=== PATIENT | male | born 1980 | race Caucasian/White ===

== ENCOUNTER 2024-05-30 07:14 | Day surgery (SDC) | payer OTHER, SELFPAY ==
[2024-05-30 07:28] VITALS: BMI 22.4
--- NOTE | 2024-05-30 07:33 | W.PM.H&PU ---
History & Physical Update History & Physical Update H&P Reviewed and patient assessed: No changes noted
--- NOTE | 2024-05-30 07:33 | PM.ORPRC ---
Procedure Note Date of procedure: 05/30/24 Procedure: PREOPERATIVE DIAGNOSIS: 1. Right middle finger volar soft tissue mass POSTOPERATIVE DIAGNOSIS: 1. Right middle finger volar soft tissue mass PROCEDURE: 1. Right middle finger volar soft tissue mass excision SURGEON: Dionte Hunt MD. RELAY TELEGRAPHER: Cari Merritt - An golf course assistant was critical for this case to aid in patient positioning, tissue retraction, limb manipulation/positioning, and closure. ANESTHESIA: Local anesthetic with monitored anesthesia care TOURNIQUET: 17 minutes at 250 mmHg ESTIMATED BLOOD LOSS: 1 mL COMPLICATIONS: None SPECIMENS: Soft tissue masses and surrounding capsule which measured approximately 1.0 x 0.5 x 0.5 cm in size. INDICATIONS: The patient is a pleasant 43-year-old male who developed a soft tissue mass on the volar aspect of his right middle finger at the level of the proximal phalanx. Mass was causing discomfort with activities and patient elected to have it surgically removed. Prior to surgery risks and benefits of procedure discussed with patient all questions were answered and informed consent was obtained. FINDINGS: Subcutaneous tissue mass with associated capsular tissue which measured approximately 1.0 x 0.5 x 0.5 cm in size, which was located subcutaneously on the volar aspect of the right middle finger. DESCRIPTION OF PROCEDURE: Patient was seen preoperatively and operative site was marked. He was then brought to the operating room and placed supine on the operating table. Monitored anesthesia care was provided by anesthesia staff. IV Ancef was administered operatively for prophylaxis. The right upper extremity was prepped and draped in usual sterile fashion. A surgical time-out was performed confirming patient identity, surgical site, and surgical procedure. A digital nerve block was performed using 1% plain lidocaine and 0.25% plain bupivacaine. A sterile tourniquet was placed on the patient's right forearm. The hand was then elevated and tourniquet was inflated to 250 mmHg. A Janie type incision was made on the volar aspect middle finger proximal phalanx between the PIP flexion crease in MCP flexion crease. Full-thickness skin flaps were developed. Electrocautery was used to achieve hemostasis. Soft tissue mass was identified. The capsular tissue was easily removed. Firm subcutaneous mass was then dissected circumferentially from surrounding soft tissues. Specimens was removed in several pieces and was sent in formalin to pathology. After removal of the soft tissue mass, subcutaneous tissues were palpable and no remnant mass was noted. Tourniquet was released. Total tourniquet time was 17 minutes. Wound was irrigated with copious amounts of normal saline and hemostasis was achieved with bipolar electrocautery. Skin was closed with 4-0 nylon horizontal mattress sutures and sterile dressings were applied. Patient was then awoke from anesthesia and transferred to the PACU stable condition. PLAN: 1. Patient will be discharged to home day of surgery. 2. They were given instructions for wound care and finger range of motion exercises. 3. Tylenol and/ ibuprofen as needed for pain control. Tramadol for breakthrough pain. 4. Ice and elevation as needed for pain and swelling. 5. No lifting, pushing, or pulling with the operative hand. 6. Return to the clinic for follow-up evaluation in 10-14 days for wound check and suture removal.
--- OUTSIDE RECORDS SUMMARY | 2024-05-30 07:37 | XMS_ITS | Clinical Summary ---
Author Organization [facility] Address [address] [place] [phone] Phone [email or web address] [email or web address] Care Team Providers Care Purchasing Department Clerk Name Role Phone Unavailable Primary Care Provider Unavailabl e Allergies No known active allergies Active Problems Problem Noted Date Diagnosed Date Cervicalgia 08/14/2022 Segmental and somatic dysfunction of pelvic em on 08/14/2022 Segmental and somatic dysfunction of sacral em on 08/14/2022 Neck muscle spasm 07/10/2022 Segmental and somatic dysfunction of cervical re gion 07/10/2022 Segmental and somatic dysfunction of thoracic re gion 07/10/2022 Impingement syndrome of right shoulder 3 Encounters Date Type Department Care Team Description 05/06/2024 Claims Summary [facility] [address] [place] [address] Provider, Claims Summary MD Emigdio 04/09/2024 Claims Summary [facility] [address] [place] [id number] Provider, Claims Summary MD Emigdio 03/06/2024 Claims Summary [facility] [address] [place] [address] Provider, Claims Summary MD Emigdio from Last 3 Months Social History Tobacco Use Types Packs/Day Years Used Date Smoking Tobacco: Former E-Cigarettes Tobacco Cessation:Counseling Given: Not Answered Stress Answer Date Recorded Stress in your Life Not on file 04/02/2024 Dealing with Stress 3 04/02/2024 Sex and Gender Information Value Date Recorded Sex Assigned at Male 07/10/2022 1:55 PM LAMINATION INSPECTOR Legal Sex Male 11:43 AM LAMINATION INSPECTOR Gender Identity Male 07/10/2022 1:55 PM LAMINATION INSPECTOR Sexual Orientation Not on file Last Filed Vital Signs Vital Sign Reading Time Taken Comments Blood Pressure - - Pulse - - Temperature - - Respiratory Rate - - Oxygen Saturation - - Inhaled Oxygen Concentration - - Weight 79.4 kg (175 lb) 08/14/2022 7:02 AM CDT Height 188 cm (6' 2) 08/14/2022 7:02 AM CDT Body Mass Index 22.47 08/14/2022 7:02 AM CDT Plan of Treatment Health Maintenance Due Date Last Done Comments Dental Cleaning/Exam 1980 HIV Screening 1980 Hepatitis C Screening 1980 Annual Preventive Exam 1998 Hep B Infection Screening - Triple Screen 1998 Hepatitis B Immunization (1 of 3 - 19+ 3-dose series) 07/28/1999 Tetanus Diphtheria and Pertu ssis Immunization (1 - Tdap) 07/28/1999 Covid-19 Immunization (1 - 2 25 season) 2024 Influenza Immunization (#1) 2024 HIB Immunization Aged Out No longer e ligible based on patient's age to complete this topic HPV Immunization Aged Out No longer e ligible based on patient's age to complete this topic Hepatitis A Immunization Aged Out No longer eligible based on patient's age to complete this topic Pneumococcal: Ped (0 to 5 Yr s) and At-Risk Member (6 to 64 Yrs) Aged Out No longer e ligible based on patient's age to complete this topic Polio Immunization Aged Out No longer eligible based on patient's age to complete this topic Varicella Immunization Aged Out No lo nger eligible based on patient's age to complete this topic Insurance [facility] NO COPAY NB
--- OUTSIDE RECORDS SUMMARY | 2024-05-30 07:37 | XMS_ITS | Encounter Summary ---
Author Organization [facility] Address [address] [place] [phone] Phone [email or web address] [email or web address] Care Team Providers Care Youth Development Professional Name Role Phone Unavailable Primary Care Provider Unavailabl e Encounter Details Date Type Department Care Team (Late st Contact Info) Description 02/06/2024 Claims Summary [facility] [address] [place] [address] Provider, Claims Summary External, [address] [place] [address] Social History Tobacco Use Types Packs/Day Years Used Date Smoking Tobacco: Former E-Cigarettes Sex and Gender Information Value Date Recorded Sex Assigned at Male 07/10/2022 1:55 PM CATASTROPHE CLAIMS SUPERVISOR Legal Sex Male 11:43 AM CATASTROPHE CLAIMS SUPERVISOR Gender Identity Male 07/10/2022 1:55 PM CATASTROPHE CLAIMS SUPERVISOR Sexual Orientation Not on file documented as of this encounter Plan of Treatment Not on file documented as of this encounter Visit Diagnoses Not on filedocumented in this encounter
--- OUTSIDE RECORDS SUMMARY | 2024-05-30 07:37 | XMS_ITS | Encounter Summary ---
Author Organization [facility] Address [address] [place] [phone] Phone [email or web address] [email or web address] Care Team Providers Care Asset Specialist Name Role Phone Unavailable Primary Care Provider Unavailabl e Encounter Details Date Type Department Care Team (Late st Contact Info) Description 03/06/2024 Claims Summary [facility] [address] [place] [address] Provider, Claims Summary External, [address] [place] [address] Social History Tobacco Use Types Packs/Day Years Used Date Smoking Tobacco: Former E-Cigarettes Sex and Gender Information Value Date Recorded Sex Assigned at Male 07/10/2022 1:55 PM PLANER CHAIN OFFBEARER Legal Sex Male 11:43 AM PLANER CHAIN OFFBEARER Gender Identity Male 07/10/2022 1:55 PM PLANER CHAIN OFFBEARER Sexual Orientation Not on file documented as of this encounter Plan of Treatment Not on file documented as of this encounter Visit Diagnoses Not on filedocumented in this encounter
--- OUTSIDE RECORDS SUMMARY | 2024-05-30 07:37 | XMS_ITS | Encounter Summary ---
Author Organization [facility] Address [address] [place] [address] Phone [email or web address] [email or web address] Care Team Providers Care Solution Lead Name Role Phone Unavailable Primary Care Provider Unavailabl e Encounter Details Date Type Department Care Team (Late st Contact Info) Description 04/09/2024 Claims Summary [facility] [address] [place] [address] Provider, Claims Summary External, [address] [place] [address] Social History Tobacco Use Types Packs/Day Years Used Date Smoking Tobacco: Former E-Cigarettes Stress Answer Date Recorded Stress in your Life Not on file 04/02/2024 Dealing with Stress 3 04/02/2024 Sex and Gender Information Value Date Recorded Sex Assigned at Male 07/10/2022 1:55 PM FLEX O WRITER OPERATOR Legal Sex Male 11:43 AM FLEX O WRITER OPERATOR Gender Identity Male 07/10/2022 1:55 PM FLEX O WRITER OPERATOR Sexual Orientation Not on file documented as of this encounter Plan of Treatment Not on file documented as of this encounter Visit Diagnoses Not on filedocumented in this encounter
--- OUTSIDE RECORDS SUMMARY | 2024-05-30 07:37 | XMS_ITS | Clinical Summary ---
Author Organization [facility] Address [address] [place] [address] Care Team Providers Care City Director Name Role Phone Unavailable Primary Care Provider Unavailabl e Source Comments You are receiving this document as you are listed as the primary care provider,follow-up provider, or the patient has been referred to you for consultation.This is in compliance with the Medicare andMedicaid EHR Incentive Program,which states Providers who transition their patient to another setting of careor provider of care or refers their patient to another provider of care shouldprovide summary care record for each transition of care or referral. [facility] Allergies No known active allergies Medications No known medications Social History Tobacco Use Types Packs/Day Years Used Date Smoking Tobacco: Never Assessed Sex and Gender Information Value Date Recorded Sex Assigned at Not on file Gender Identity Not on file Sexual Orientation Not on file Last Filed Vital Signs Vital Sign Reading Time Taken Comments Blood Pressure - - Pulse - - Temperature 36.6 C (97.8 F) 05/18/2023 2:13 PM SLASH TRIMMER Respiratory Rate - - Oxygen Saturation - - Inhaled Oxygen Concentration - - Weight 77.1 kg (170 lb) 05/18/2023 2:13 PM SLASH TRIMMER Height 188 cm (6' 2) 05/18/2023 2:13 PM SLASH TRIMMER Body Mass Index 21.83 05/18/2023 2:13 PM SLASH TRIMMER Plan of Treatment Health Maintenance Due Date Last Done Comments Hep C Screening (Preventive Services) 1980 HIV Screening (Preventive Services) 1996 Adult Preventive Visit 1998 HepB (1) 07/28/1999 DTaP/Tdap/Td (1 - Tdap) 07/21/2007 07/20/2007 Cholesterol 07/28/2015 COVID-19 Vaccine (2023-2 5 season) 2024 09/17/2020, 08/26/2020 Influenza (#1) 2024 Zoster/Shingles (1 of 2) 2030 HPV Vaccine Aged Out No longer eligi ble based on patient's age to complete this topic HepA Aged Out No longer eligi ble based on patient's age to complete this topic Hib Aged Out No longer eligi ble based on patient's age to complete this topic IPV (Polio) Aged Out No longer eligi ble based on patient's age to complete this topic MCV4 Aged Out No longer eligi ble based on patient's age to complete this topic Pneumococcal Aged Out No longer eligi ble based on patient's age to complete this topic
--- OUTSIDE RECORDS SUMMARY | 2024-05-30 07:37 | XMS_ITS | Encounter Summary ---
Author Organization [facility] Address [address] [place] [phone] Phone CareEverywhereSuppor [email or web address] Care Team Providers Care It Consultant Name Role Phone Unavailable Primary Care Provider Unavailabl e Encounter Details Date Type Department Care Team (Late st Contact Info) Description 12/26/2023 Claims Summary [facility] [address] [place] [address] Provider, Claims Summary External, [address] [place] [address] Social History Tobacco Use Types Packs/Day Years Used Date Smoking Tobacco: Former E-Cigarettes Sex and Gender Information Value Date Recorded Sex Assigned at Male 07/10/2022 1:55 PM MANUFACTURING MILLWRIGHT Legal Sex Male 11:43 AM MANUFACTURING MILLWRIGHT Gender Identity Male 07/10/2022 1:55 PM MANUFACTURING MILLWRIGHT Sexual Orientation Not on file documented as of this encounter Plan of Treatment Not on file documented as of this encounter Visit Diagnoses Not on filedocumented in this encounter
--- OUTSIDE RECORDS SUMMARY | 2024-05-30 07:37 | XMS_ITS | Encounter Summary ---
Author Organization [facility] Address [address] [place] [address] Phone CareEverywhereSuppor [email or web address] Care Team Providers Care Hydroelectric Machinery Mechanic Name Role Phone Unavailable Primary Care Provider Unavailabl e Encounter Details Date Type Department Care Team (Late st Contact Info) Description 05/06/2024 Claims Summary [facility] [address] [place] [address] Provider, Claims Summary External, [address] [place] [address] Social History Tobacco Use Types Packs/Day Years Used Date Smoking Tobacco: Former E-Cigarettes Stress Answer Date Recorded Stress in your Life Not on file 04/02/2024 Dealing with Stress 3 04/02/2024 Sex and Gender Information Value Date Recorded Sex Assigned at Male 07/10/2022 1:55 PM BIOINFORMATICIST Legal Sex Male 11:43 AM BIOINFORMATICIST Gender Identity Male 07/10/2022 1:55 PM BIOINFORMATICIST Sexual Orientation Not on file documented as of this encounter Plan of Treatment Not on file documented as of this encounter Visit Diagnoses Not on filedocumented in this encounter
[2024-05-30 07:54] VITALS: BP 120/68; PULSE 68; RESP 16; TEMP 36.6; O2SAT 98
[2024-05-30] MEDS: SODIUM CHLORIDE 0.9 % (FLUSH) 10 ML SYRINGE IVF (07:55)
[2024-05-30] MEDS: 0.9 % SODIUM CHLORIDE 500 ML 500 ML 100 ML IV (07:58)
[2024-05-30] MEDS: CEFAZOLIN 2 GM INJ IVP (08:03)
[2024-05-30] MEDS: LIDOCAINE 1% MDV 20 ML INJECTION (08:15)
[2024-05-30] MEDS: BUPIVACAINE 0.25% 30 ML INJECTION (08:15)
[2024-05-30] MEDS: NEOMYCIN/BACITRACIN/POLYMYXIN B 1 APPLIC TOPICAL (08:20)
[2024-05-30 08:57] VITALS: BP 110/75; PULSE 59; RESP 16; TEMP 36.4; O2SAT 96
--- NOTE | 2024-05-30 09:01 | W.ANESCHARGE ---
Anesthesia Charges Start Date/Time Anesthesia Start Date: 05/30/24 Anesthesia Start Time: 07:53 Stop Date/Time Anesthesia Stop Date: 05/30/24 Anesthesia Stop Time: 09:00
[2024-05-30 09:15] VITALS: BP 102/71; PULSE 57; RESP 16; O2SAT 95
[2024-05-30 09:30] VITALS: BP 114/78; PULSE 60; RESP 16; O2SAT 95
== END 2024-05-30 10:00 | disposition home or self-care (01) ==
PROVIDERS: PCP Physician Assistant Medical; Visit Provider Orthopaedic Surgery
PROC: (CPT 26160; principal; 2024-05-30 08:15)
DX: R22.31 Localized swelling, mass and lump, right upper limb (principal); L72.0 Epidermal cyst
CPT/HCPCS: 26160; 01810; 88304; J2003; J0665; J0690; J1100; J2250; J2405; J2704; J3010; J3490; J7030

== ENCOUNTER 2025-02-05 15:44 | Outpatient (CLI) | payer OTHER, SELFPAY ==
--- NOTE | 2025-02-17 08:36 | P.SLS_ITS ---
Sleep Study Details Details Interpreting Provider: Dorys Date of Sleep Study: 02/05/25 Sleep Study Details: STUDY TYPE:? home unattended ? BMI:? 22.5 ORDERING PROVIDER:? Dorys INDICATION:? concern for sleep apnea ? SLEEP SUMMARY:? 394 minutes monitored RESPIRATORY SUMMARY:? AHI 3.8 per rule 1A, 2.3 per CMS guideline Low oxygen 81 2.2% of study oxygen less than 90% Snoring 100% PERIODIC LIMB MOVEMENTS OF SLEEP:? not recorded CARDIAC:? range 53-99, mean 62 beats per minute IMPRESSION:? Primary snoring. this study is not demonstrate clinically significant obstructive sleep apnea. RECOMMENDATION: If sleep disorder is strongly suspected would recommend an in- lab study.
== END 2025-02-05 15:45 | disposition home or self-care (01) ==
LOC: SLEEP 15:45
PROVIDERS: PCP Physician Assistant Medical; Visit Provider Otolaryngology
DX: R06.83 Snoring (principal)
CPT/HCPCS: 95806